=== PATIENT | female | born 1980 | race Caucasian/White ===

== ENCOUNTER 2025-02-23 20:00 | Emergency (ER) | payer OTHER ==
[~2025-02-23] VITALS: Ht 160 cm; Wt 84.8 kg
[~2025-02-23 20:00] MED LIST: ABILIFY2 MG PO; REMERON45 M1 PO
[2025-02-23 20:06] VITALS: PULSE 77; RESP 19; TEMP 97.8
[2025-02-23 22:21] VITALS: BP 141/97; O2SAT 97
== END 2025-02-23 22:14 | disposition home or self-care (01) ==
LOC: FSED 20:09
DX: M25.562 Pain in left knee (principal); W19.XXXA Unspecified fall, initial encounter; F32.A Depression, unspecified
CPT/HCPCS: 99284